=== PATIENT | male | born 1950 | race Caucasian/White ===

== ENCOUNTER → 2016-12-07 | Outpatient (REF) | payer OTHER ==
[2016-12-07 12:02] LABS: INR 3.51
== END ==
LOC: M SFHCCLAY 08:04
PROVIDERS: ATTEND Family Medicine
DX: Z79.01 Long term (current) use of anticoagulants (principal)

== ENCOUNTER → 2016-12-21 | Outpatient (REF) | payer OTHER ==
[2016-12-21 11:59] LABS: INR 3.07
== END ==
LOC: M SFHCCLAY 07:43
PROVIDERS: ATTEND Family Medicine
DX: Z95.2 Presence of prosthetic heart valve (principal)

== ENCOUNTER → 2017-01-04 | Outpatient (REF) | payer OTHER ==
[2017-01-04 13:20] LABS: INR 2.64
== END ==
LOC: M SFHCCLAY 09:28
PROVIDERS: ATTEND Family Medicine
DX: Z79.01 Long term (current) use of anticoagulants (principal); Z51.81 Encounter for therapeutic drug level monitoring

== ENCOUNTER → 2017-01-25 | Outpatient (CLI) | payer MEDICARE, OTHER ==
[~2017-01-25] MED LIST: AMIO200T; AMIO200T PO; ASPI1TAB PO; CITA20TA4; CITA20TA4 PO; DOXA1TAB41; DOXA1TAB71 PO; FAMO1TAB11; METO1TAB32; METO1TAB32 PO; OMEP20CA3 PO; OMEP40CA2; OXYB10TA; OXYB10TA PO; WARF-58 PO; WARF4TAB51 PO
--- NOTE | 2017-01-25 14:07 | REP ---
Chest two views HISTORY: Cough Comparison: None The lungs are clear. A small right pleural effusion is present. The heart is normal in size. The pulmonary vasculature is normal in appearance. The bony structure is intact. There is an old fracture of the left clavicle. IMPRESSION: Small right pleural effusion Signed by Akil Mathias MD 01/25/2017 01:59 P
== END ==
LOC: M RAD 13:19
PROVIDERS: ATTEND Internal Medicine Cardiovascular Disease
DX: R05 Cough (principal)

== ENCOUNTER → 2017-01-26 | Outpatient (REF) | payer OTHER ==
[2017-01-26 11:50] LABS: INR 1.7
== END ==
LOC: M LABDRAWC 11:20
PROVIDERS: ATTEND Internal Medicine Cardiovascular Disease
DX: Z51.81 Encounter for therapeutic drug level monitoring (principal); Z79.01 Long term (current) use of anticoagulants; Z95.2 Presence of prosthetic heart valve

== ENCOUNTER → 2017-02-28 | Outpatient (REF) | payer OTHER ==
[2017-02-28 12:08] LABS: INR 3.5
== END ==
LOC: M LABDRAWC 11:17
PROVIDERS: ATTEND Physician Assistant
DX: Z95.2 Presence of prosthetic heart valve (principal)

== ENCOUNTER → 2017-03-23 | Outpatient (REF) | payer OTHER ==
[2017-03-23 12:33] LABS: INR 2.89
== END ==
LOC: M LAB REF 08:08
PROVIDERS: ATTEND Physician Assistant
DX: Z51.81 Encounter for therapeutic drug level monitoring (principal); Z79.01 Long term (current) use of anticoagulants; Z95.2 Presence of prosthetic heart valve

== ENCOUNTER → 2017-03-31 | Outpatient (CLI) | payer OTHER | LOC: M SMT 14:39 | PROVIDERS: ATTEND Nurse Practitioner Women's Health | DX: N40.0 Benign prostatic hyperplasia without lower urinary tract symptoms (principal); Z12.5 Encounter for screening for malignant neoplasm of prostate | CPT/HCPCS: 36415; 81001; 87086; G0103 ==

== ENCOUNTER → 2017-04-08 | Outpatient (CLI) | payer MEDICARE, OTHER ==
--- NOTE | 2017-04-08 12:54 | REP ---
PA and lateral chest: Comparison is 01/25/2017. There is chronic effacement of the right costophrenic angle, unchanged. Sternotomy wires and cardiac valve prosthesis are again identified, unchanged. Lung oquendo are clear. Cardiac size is normal. The rhiannon, mediastinum, and bony thorax are unremarkable. The cervical spine stabilization plates are again noted. Stabilization plates in the sternum are again noted. Impression: Chronic effacement right costophrenic angle. Lung oquendo otherwise clear. No change from the prior study. Signed by Omar Prince MD 04/08/2017 12:45 P
== END ==
LOC: M RAD 10:56
PROVIDERS: ATTEND Internal Medicine Cardiovascular Disease
DX: R05 Cough (principal)

== ENCOUNTER 2017-04-20 14:36 | Emergency (ER) | payer MEDICARE, OTHER ==
[~2017-04-20] VITALS: Ht 182.9 cm; Wt 87.7 kg
[2017-04-20] MEDS ORDERED: OXYB10TA (15:22)
[2017-04-20] MEDS ORDERED: METO1TAB32 (15:22)
[2017-04-20] MEDS ORDERED: WARF4TAB51 PO (15:22)
[2017-04-20] MEDS ORDERED: FAMO1TAB11 (15:22)
[2017-04-20] MEDS ORDERED: AMIO200T (15:22)
[2017-04-20] MEDS ORDERED: CITA20TA4 (15:22)
[2017-04-20] MEDS ORDERED: WARF-58 PO ×3 (15:22→15:53)
[2017-04-20] MEDS ORDERED: OMEP40CA2 (15:22)
[2017-04-20] MEDS ORDERED: DOXA1TAB41 (15:22)
[2017-04-20] MEDS ORDERED: NS 1,000 ML IV SCH (15:24)
[2017-04-20] MEDS ORDERED: PIPERACILLIN/TAZOBACTAM SOD 3.375 GM in D5W 50 ML IV ONE (15:30)
[2017-04-20] MEDS ORDERED: DOXA1TAB71 PO (15:53)
[2017-04-20] MEDS ORDERED: OMEP20CA3 PO (15:53)
[2017-04-20] MEDS ORDERED: OXYB10TA PO (15:53)
[2017-04-20] MEDS ORDERED: CITA20TA4 PO (15:53)
[2017-04-20] MEDS ORDERED: AMIO200T PO (15:53)
[2017-04-20] MEDS ORDERED: METO1TAB32 PO (15:53)
[2017-04-20] MEDS ORDERED: ASPI1TAB PO (16:03)
[2017-04-20 16:17] LABS: BASO # 0.1 10^3/uL (0.0-0.2); BASO % 0.8 % (0.0-1.0); EOS # 0.2 10^3/uL (0.0-0.50); EOS % 3.1 % (0.0-3.0); IMMATURE GRANULOCYTE % 0.3 % (0-0); LYMPH # 1.2 10^3/uL (1.5-4.5); LYMPH % 17.9 % (24.0-44.0); MEAN CORPUSCULAR HEMOGLOBIN 29.8 pg (27.0-33.0); MEAN CORPUSCULAR HGB CONC 32.8 g/dl (32.0-36.5); MEAN CORPUSCULAR VOLUME 90.7 fl (80.0-96.0); MONO # 0.6 10^3/uL (0.0-0.8); NEUTROPHILS # 4.4 10^3/uL (1.8-7.7); NEUTROPHILS % 68.9 % (36.0-66.0); PLATELET COUNT, AUTOMATED 194 10^3/uL (150-450); RED CELL DISTRIBUTION WIDTH 14.4 % (11.5-14.5); WHITE BLOOD COUNT 6.4 10^3/uL (4.0-10.0)
[2017-04-20 16:22] LABS: ADD MORPHOLOGY? NO
[2017-04-20 16:33] LABS: CHLORIDE LEVEL 106 MEQ/L (98-107); POTASSIUM SERUM 4.2 MEQ/L (3.5-5.1); SODIUM LEVEL 140 MEQ/L (136-145)
[2017-04-20 16:43] LABS: INR 10.36
[2017-04-20] MEDS ORDERED: PHYTONADIONE INJection 5 MG in NS 50 ML IV ONE (16:45)
[2017-04-20 16:49] LABS: ALKALINE PHOSPHATASE 103 U/L (45-117); ALT/SGPT 30 U/L (12-78); AST/SGOT 30 U/L (15-37); BILIRUBIN,DIRECT 0.1 MG/DL (0.0-0.2); BILIRUBIN,TOTAL 0.6 MG/DL (0.2-1.0); BLOOD UREA NITROGEN 10 MG/DL (7-18); CALCIUM LEVEL 8.3 MG/DL (8.8-10.2); GLUCOSE, FASTING 89 MG/DL (80-110); TOTAL PROTEIN 7.2 GM/DL (6.4-8.2)
--- NOTE | 2017-04-20 16:57 | REP ---
CHEST, TWO VIEWS: Two views of the chest are performed and compared to prior study of 04/08/2017. There is no evidence of acute infiltrate. There is again mild elevation of the left hemidiaphragm, unchanged. Heart is not enlarged. Mediastinal silhouette is unchanged. Multiple sternal wires are present. A metallic plate and screws are seen in the lower cervical spine. There are mild degenerative changes of the spine. IMPRESSION: No acute pulmonary disease. Signed by Omar Regan MD 04/21/2017 07:14 P
[2017-04-20 20:36] LABS: ALBUMIN/GLOBULIN RATIO 1.25 (1.00-1.93); ANION GAP 7 MEQ/L (8-16); CARBON DIOXIDE LEVEL 27 MEQ/L (21-32)
--- NOTE | 2017-04-20 22:03 | CR ---
DATE OF CONSULTATION: 04/20/2017 PRIMARY CARE PHYSICIAN: Dr. Rosado GRIEVANCE COORDINATOR: Dr. Tate CHIEF COMPLAINT: Abnormal blood work. HISTORY OF PRESENT ILLNESS: The patient is a 66-year-old man who underwent abdominal aortic aneurysm (AAA) repair and aortic valve replacement with mechanical valve in October. Since then he has been on Coumadin. He was on a dose of 6 mg Tuesday, Tuesday, Tuesday and 3 mg on the other four days of the week. One month ago this was titrated up to 9 mg on Tuesday, Tuesday, Tuesday and 6 mg on every other day of the week. He had an INR check this morning. It was greater than 11, when Dr. Tate' office notified him to present to the emergency room. In the emergency room he did receive vitamin K 5 mg as well as 1 unit of fresh frozen plasma (FFP). He denies any bleeding, bleeding gums. He has reported some mild chest pain, which resolved. Denies fevers, chills, nausea, vomiting, or diarrhea. PAST MEDICAL HISTORY: 1. Mechanical aortic valve. 2. AAA repair. 3. Lumbar stenosis. 4. Cervical degenerative disc disease. 5. Gastroesophageal reflux disease. 6. Depression. 7. Anxiety. 8. Posttraumatic stress disorder (PTSD). 9. Insomnia. 10. Obstructive sleep apnea, not complaint with continuous positive airway pressure (CPAP). 11. Benign prostatic hypertrophy (BPH). ALLERGIES: DARVON, causes tremors. SURGICAL HISTORY: 1. AAA repair. 2. Aortic valve replacement in October 2016. 3. Anterior cervical decompression and fusion (ACDF) 2006. 4. Colonoscopy in 2006. 5. Tonsillectomy. 6. L3-4 laminectomy in 2015. SOCIAL HISTORY: He is former smoker. He denies alcohol or illicit drug use. He lives with his significant other, who is present in the emergency room. FAMILY HISTORY: Noncontributory. REVIEW OF SYSTEMS: Negative other than in history of present illness (HPI). HOME MEDICATIONS: - amiodarone 200 mg daily - aspirin 81 mg daily - citalopram 20 mg at bedtime - metoprolol succinate 25 mg daily - omeprazole 20 mg at bedtime - oxybutynin extended release 10 mg daily - Coumadin as outlined above - doxazosin 2 mg daily OBJECTIVE: VITAL SIGNS: Temperature 97.6, pulse 52, respiratory rate 16, blood pressure (BP) 118/65, oxygen saturation 100% on room air. GENERAL: He is a pleasant, elderly man, lying in a stretcher at a 30-degree angle. He does not appear in any acute distress whatsoever. HEENT: Cranial nerves II-XII are grossly intact. Normocephalic, atraumatic. Moist mucous membranes. No elevation in central venous pressure (CVP). CARDIOVASCULAR: S1, S2. Appears regular. RESPIRATORY: Fairly clear. ABDOMEN: Benign. EXTREMITIES: No clubbing, cyanosis, or edema. LABORATORY STUDIES: WBC 6.4, hemoglobin 15.7, platelet count 194. Chemistry panel: Sodium 140, potassium 4.2, chloride 106, bicarbonate 27, BUN 10, creatinine 1.2. One set of cardiac enzymes is negative. An INR is 10.3. Chest x-ray reveals no acute pulmonary disease. ASSESSMENT AND PLAN: This is a 66-year-old man with elevated INR. 1. Elevated INR> Patient has received 5 mg of vitamin K and is in the process of receiving 1 unit of FFP. He is not actively bleeding. I did discuss the case with Dr. Godinez. Given that there is no evidence of active bleeding, and he has received vitamin K, I suspect that he can be discharged home with an INR check tomorrow and then again the next day, when the results will be sent to Dr. Tate, who has been managing his Coumadin. I suspect he just requires a lower daily dose and has been slowly rising since his medication change [address] Godinez was in agreement with the plan, as was the patient, who is completely asymptomatic at this point. 2. Mild chest discomfort. Does not sound cardiac in etiology; however, given his history, would recommend rechecking another set of cardiac enzymes after completing his 1 unit of FFP, 4 hours apart. If negative, the patient could be discharged home. He does not have any concerning EKG changes. 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 He should hold his aspirin and his Coumadin until notified by Dr. Tate. Plan of care discussed with emergency department (ED) provider, Reji Knox.
[2017-04-20 22:18] VITALS: BP 111/67
--- NOTE | 2017-04-21 07:56 | ECGEPIP ---
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
--- NOTE | 2017-04-22 06:01 | ECGEPIP ---
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
== END 2017-04-20 22:35 | disposition home or self-care (01) ==
LOC: M ED 14:36
DX: R79.1 Abnormal coagulation profile (principal); R10.9 Unspecified abdominal pain; I47.1 Supraventricular tachycardia; G47.33 Obstructive sleep apnea (adult) (pediatric); E78.9 Disorder of lipoprotein metabolism, unspecified; M50.93 Cervical disc disorder, unspecified, cervicothoracic region; M48.00 Spinal stenosis, site unspecified; K21.9 Gastro-esophageal reflux disease without esophagitis; Z79.01 Long term (current) use of anticoagulants; Z79.82 Long term (current) use of aspirin; Z79.899 Other long term (current) drug therapy; Z95.2 Presence of prosthetic heart valve; Z87.891 Personal history of nicotine dependence
CPT/HCPCS: 71020; 80053; 82550; 82553; 84443; 84484; 85025; 85027; 85610; 85730; 86850; 86900; 86901; 86927; 93005; 93041; 94760; 96374; 99285; J3430; P9017

== ENCOUNTER → 2017-04-20 | Outpatient (REF) | payer MEDICARE, OTHER ==
[2017-04-20 11:50] LABS: BASO # 0.1 10^3/uL (0.0-0.2); BASO % 1.2 % (0.0-1.0); EOS # 0.2 10^3/uL (0.0-0.50); EOS % 3.2 % (0.0-3.0); IMMATURE GRANULOCYTE % 0.2 % (0-0); LYMPH # 1.3 10^3/uL (1.5-4.5); LYMPH % 19.6 % (24.0-44.0); MEAN CORPUSCULAR HEMOGLOBIN 29.6 pg (27.0-33.0); MEAN CORPUSCULAR HGB CONC 32.3 g/dl (32.0-36.5); MEAN CORPUSCULAR VOLUME 91.6 fl (80.0-96.0); MONO # 0.7 10^3/uL (0.0-0.8); MONO % 10.9 % (0.0-5.0); NEUTROPHILS # 4.2 10^3/uL (1.8-7.7); NEUTROPHILS % 64.9 % (36.0-66.0); RED CELL DISTRIBUTION WIDTH 14.3 % (11.5-14.5); WHITE BLOOD COUNT 6.5 10^3/uL (4.0-10.0)
[2017-04-20 12:27] LABS: ALBUMIN 3.8 GM/DL (3.2-5.2); ALBUMIN/GLOBULIN RATIO 1.23 (1.00-1.93); ALKALINE PHOSPHATASE 94 U/L (45-117); ALT/SGPT 29 U/L (12-78); ANION GAP 7 MEQ/L (8-16); AST/SGOT 26 U/L (15-37); BILIRUBIN,TOTAL 0.5 MG/DL (0.2-1.0); BLOOD UREA NITROGEN 9 MG/DL (7-18); CALCIUM LEVEL 8.7 MG/DL (8.8-10.2); CARBON DIOXIDE LEVEL 27 MEQ/L (21-32); CHLORIDE LEVEL 105 MEQ/L (98-107); CREATININE FOR GFR 1.15 MG/DL (0.70-1.30); GLOMERULAR FILTRATION RATE > 60.0 (>49); GLUCOSE, FASTING 80 MG/DL (80-110); POTASSIUM SERUM 4.3 MEQ/L (3.5-5.1); SODIUM LEVEL 139 MEQ/L (136-145); TOTAL PROTEIN 6.9 GM/DL (6.4-8.2)
[2017-04-20 12:47] LABS: INR 11.99
== END ==
LOC: M LAB REF 11:31
PROVIDERS: ATTEND Internal Medicine Cardiovascular Disease
DX: I47.1 Supraventricular tachycardia (principal)

== ENCOUNTER → 2017-04-21 | Outpatient (REF) | payer MEDICARE, OTHER ==
[2017-04-21 13:33] LABS: INR 1.43
== END ==
LOC: M LAB REF 12:00
PROVIDERS: ATTEND Internal Medicine
DX: Z79.01 Long term (current) use of anticoagulants (principal)

== ENCOUNTER → 2017-04-22 | Outpatient (REF) | payer MEDICARE, OTHER ==
[2017-04-22 13:32] LABS: INR 1.28
== END ==
LOC: M LAB REF 11:55
PROVIDERS: ATTEND Internal Medicine
DX: Z79.01 Long term (current) use of anticoagulants (principal)

== ENCOUNTER → 2017-04-26 | Outpatient (REF) | payer MEDICARE, OTHER ==
[2017-04-26 12:05] LABS: INR 3.42
== END ==
LOC: M LABDRAWC 11:31
PROVIDERS: ATTEND Internal Medicine Cardiovascular Disease
DX: Z51.81 Encounter for therapeutic drug level monitoring (principal); Z79.01 Long term (current) use of anticoagulants; Z95.2 Presence of prosthetic heart valve

== ENCOUNTER → 2017-05-11 | Outpatient (CLI) | payer MEDICARE, OTHER ==
[2017-05-11 16:38] LABS: INR 2.25
== END ==
LOC: M LAB 15:50
PROVIDERS: ATTEND Internal Medicine Cardiovascular Disease
DX: Z51.81 Encounter for therapeutic drug level monitoring (principal); Z79.01 Long term (current) use of anticoagulants; Z95.2 Presence of prosthetic heart valve

== ENCOUNTER → 2017-10-17 | Outpatient (CLI) | payer MEDICARE, OTHER | LOC: M RAD 12:12 | DX: I47.1 Supraventricular tachycardia (principal) | CPT/HCPCS: 71046 ==

== ENCOUNTER 2018-09-07 10:24 | Day surgery (SDC) | payer OTHER ==
[~2018-09-07] VITALS: Ht 182.9 cm; Wt 94.3 kg
[~2018-09-07 10:24] MED LIST changes: -DOXA1TAB71 PO; +DOXA2TAB3 PO; +MEMA1TAB2 PO; +NS 1,000 ML IV ONE
[2018-09-07 11:14] LABS: INR 1.62; PROTHROMBIN TIME 19.5 SECONDS (12.1-14.4)
[2018-09-07] MEDS ORDERED: PROPOFOL 200 MG/20 ML VIAL As Ordered ONE ×2 (11:58→12:55)
[2018-09-07] MEDS ORDERED: LIDOCAINE 2% INJ 100 MG/5 ML SDV (FOR ANES.) As Ordered ONE (11:58)
--- NOTE | 2018-09-07 12:55 | ROOR ---
Patient Name: Kt Martinez Procedure Date: 09/07/2018 12:43 PM Date of : 1950 Age: 68 Room: [facility] Gender: Male Note Status: Finalized Procedure: Upper GI endoscopy Indications: Heartburn Providers: Gary DE LA GARZA MD Referring MD: CATIA MONSIVAIS DO Requesting Provider: Medicines: Monitored Anesthesia Care Complications: No immediate complications. Procedure: Pre-Anesthesia Assessment: - The heart rate, respiratory rate, oxygen saturations, blood pressure, adequacy of pulmonary ventilation, and response to care were monitored throughout the procedure. The Endoscope was introduced through the mouth, and advanced to the second part of duodenum. The upper GI endoscopy was accomplished without difficulty. The patient tolerated the procedure well. Findings: The esophagus was normal. The stomach was normal. The examined duodenum was normal. Impression: - Normal esophagus. - Normal stomach. - Normal examined duodenum. - No specimens collected. Recommendation: - Continue present medications. - Observe patient's clinical course. - Follow an antireflux regimen. Gary De La Garza MD Gary DE LA GARZA MD 09/07/2018 12:54:45 PM This report has been signed electronically. Number of Addenda: 0 Note Initiated On: 09/07/2018 12:43 PM Estimated Blood Loss: Estimated blood loss: none.
--- NOTE | 2018-09-07 13:14 | ROOR ---
Patient Name: Kt Martinez Procedure Date: 09/07/2018 12:44 PM Date of : 1950 Age: 68 Room: [facility] Gender: Male Note Status: Finalized Procedure: Colonoscopy Indications: Screening for colorectal malignant neoplasm Providers: Gary DE LA GARZA MD Referring MD: CATIA MONSIVAIS DO Requesting Provider: Medicines: Monitored Anesthesia Care Complications: No immediate complications. Procedure: Pre-Anesthesia Assessment: - The heart rate, respiratory rate, oxygen saturations, blood pressure, adequacy of pulmonary ventilation, and response to care were monitored throughout the procedure. The Colonoscope was introduced through the anus and advanced to the cecum, identified by appendiceal orifice and ileocecal valve. The colonoscopy was performed without difficulty. The patient tolerated the procedure well. The quality of the bowel preparation was good. Findings: The perianal and digital rectal examinations were normal. A 10 mm polyp was found in the distal sigmoid colon. The polyp was pedunculated. The polyp was removed with a cold snare. Resection and retrieval were complete. To prevent bleeding after the polypectomy, three hemostatic clips were successfully placed (MR conditional). There was no bleeding at the end of the procedure. Internal hemorrhoids were found during retroflexion. The hemorrhoids were medium-sized. The exam was otherwise without abnormality on direct and retroflexion views. Impression: - One 10 mm polyp in the distal sigmoid colon, removed with a cold snare. Resected and retrieved. Clips (MR conditional) were placed. - Internal hemorrhoids. - The colon examination was otherwise normal on direct and retroflexion views. Recommendation: - Resume Coumadin (warfarin) at prior dose today. - Await pathology results. - Repeat colonoscopy in 5 years for surveillance. - Telephone endoscopist for pathology results in 2 weeks. Gary De La Garza MD Gary DE LA GARZA MD 09/07/2018 1:14:07 PM This report has been signed electronically. Number of Addenda: 0 Note Initiated On: 09/07/2018 12:44 PM Estimated Blood Loss: Estimated blood loss: none.
[2018-09-07 13:40] VITALS: BP 116/71
== END 2018-09-07 13:40 | disposition home or self-care (01) ==
LOC: M OPP 10:24
PROVIDERS: ATTEND Internal Medicine Gastroenterology
DX: D12.5 Benign neoplasm of sigmoid colon (principal); K64.8 Other hemorrhoids; R12 Heartburn; Z12.11 Encounter for screening for malignant neoplasm of colon

== ENCOUNTER → 2019-09-25 | Outpatient (REF) | payer OTHER ==
[~2019-09-25] MED LIST changes: -ASPI1TAB PO; +ASPI81TA26 PO; -CITA20TA4; -CITA20TA4 PO; +CITA20TA6; +CITA20TA6 PO; +MEMA10TA19 PO; -MEMA1TAB2 PO; -NS 1,000 ML IV ONE; +OMEP1CAP73 PO; -OMEP20CA3 PO; -OMEP40CA2; +OMEP40CA97; -OXYB10TA; -OXYB10TA PO; +OXYB10TA23; +OXYB10TA23 PO
[2019-09-25 12:26] LABS: ALBUMIN 3.8 GM/DL (3.2-5.2); BILIRUBIN,TOTAL 0.5 MG/DL (0.2-1.0); CALCIUM LEVEL 8.9 MG/DL (8.8-10.2); CHOLESTEROL RISK RATIO 3.311 (<5); CREATININE FOR GFR 1.34 MG/DL (0.70-1.30); GLOMERULAR FILTRATION RATE 55.9 (>42); POTASSIUM SERUM 4.7 MEQ/L (3.5-5.1); TOTAL PROTEIN 7.1 GM/DL (6.4-8.2)
== END ==
LOC: M SFHCCLAY 07:41
PROVIDERS: ATTEND Family Medicine
DX: E78.2 Mixed hyperlipidemia (principal)

== ENCOUNTER → 2020-09-16 | Outpatient (REF) | payer OTHER ==
[~2020-09-16] MED LIST changes: -AMIO200T; -AMIO200T PO; +AMIO200T3; +AMIO200T3 PO
[2020-09-16 12:07] LABS: BASO # 0.1 10^3/uL (0.0-0.2); BASO % 1.1 % (0.0-1.0); EOS # 0.2 10^3/uL (0.0-0.5); EOS % 3.6 % (0.0-3.0); HEMOGLOBIN 14.9 g/dl (13.5-17.5); LYMPH # 1.4 10^3/uL (1.5-5.0); LYMPH % 21.9 % (24.0-44.0); MEAN CORPUSCULAR HGB CONC 30.4 g/dl (32.0-36.5); MEAN CORPUSCULAR VOLUME 98.6 fl (80.0-96.0); MONO # 0.7 10^3/uL (0.0-0.8); NEUTROPHILS # 4.1 10^3/uL (1.5-8.5); NEUTROPHILS % 63.2 % (36.0-66.0); PLATELET COUNT, AUTOMATED 219 10^3/uL (150-450); RED BLOOD COUNT 4.97 10^6/uL (4.30-6.10); WHITE BLOOD COUNT 6.5 10^3/uL (4.0-10.0)
[2020-09-16 12:42] LABS: ALBUMIN 3.8 GM/DL (3.2-5.2); BILIRUBIN,TOTAL 0.5 MG/DL (0.2-1.0); CALCIUM LEVEL 8.8 MG/DL (8.8-10.2); CHOLESTEROL RISK RATIO 3.5 (<5); CREATININE FOR GFR 1.36 MG/DL (0.70-1.30); GLOMERULAR FILTRATION RATE 54.8 (>42); POTASSIUM SERUM 4.3 MEQ/L (3.5-5.1); TOTAL PROTEIN 6.8 GM/DL (6.4-8.2)
== END ==
LOC: M SFHCCLAY 08:23
PROVIDERS: ATTEND Family Medicine
DX: E78.2 Mixed hyperlipidemia (principal); R03.0 Elevated blood-pressure reading, without diagnosis of hypertension

== ENCOUNTER → 2021-09-17 | Outpatient (REF) | payer OTHER ==
[~2021-09-17] MED LIST changes: -AMIO200T3; -AMIO200T3 PO; +AMIO200T49; +AMIO200T49 PO; +OMEP40CA4; -OMEP40CA97
[2021-09-17 11:37] LABS: BASO # 0.1 10^3/uL (0.0-0.2); EOS # 0.2 10^3/uL (0.0-0.5); EOS % 3.3 % (0.0-3.0); HEMATOCRIT 47.6 % (42.0-52.0); HEMOGLOBIN 14.9 g/dl (13.5-17.5); LYMPH # 1.3 10^3/uL (1.5-5.0); LYMPH % 21.6 % (24.0-44.0); MEAN CORPUSCULAR HEMOGLOBIN 30.3 pg (27.0-33.0); MEAN CORPUSCULAR HGB CONC 31.3 g/dl (32.0-36.5); MEAN CORPUSCULAR VOLUME 96.7 fl (80.0-96.0); MONO # 0.6 10^3/uL (0.0-0.8); MONO % 9.5 % (2.0-8.0); NEUTROPHILS # 3.7 10^3/uL (1.5-8.5); NEUTROPHILS % 64.4 % (36.0-66.0); PLATELET COUNT, AUTOMATED 213 10^3/uL (150-450); RED BLOOD COUNT 4.92 10^6/uL (4.30-6.10); WHITE BLOOD COUNT 5.8 10^3/uL (4.0-10.0)
[2021-09-17 12:31] LABS: ALBUMIN 3.7 GM/DL (3.2-5.2); ALT/SGPT 32 U/L (12-78); BILIRUBIN,TOTAL 0.4 MG/DL (0.2-1.0); BLOOD UREA NITROGEN 8 MG/DL (7-18); CARBON DIOXIDE LEVEL 29 MEQ/L (21-32); CHLORIDE LEVEL 108 MEQ/L (98-107); CHOLESTEROL LEVEL 200 MG/DL (<200); CHOLESTEROL RISK RATIO 4.444 (<5); CREATININE FOR GFR 1.21 MG/DL (0.70-1.30); GLOMERULAR FILTRATION RATE > 60.0 (>42); GLUCOSE, FASTING 124 MG/DL (70-100); HDL CHOLESTEROL 45 MG/DL (>40); LDL CHOLESTEROL 124 MG/DL (<100); MAGNESIUM LEVEL 2.7 MG/DL (1.8-2.4); NON-HDL-C 155 MG/DL; POTASSIUM SERUM 4.3 MEQ/L (3.5-5.1); SODIUM LEVEL 141 MEQ/L (136-145); TOTAL PROTEIN 7.2 GM/DL (6.4-8.2); TRIGLYCERIDES LEVEL 153 MG/DL (<150)
== END ==
LOC: M SFHCCLAY 08:54
PROVIDERS: ATTEND Family Medicine
DX: E78.2 Mixed hyperlipidemia (principal); Z13.0 Encounter for screening for diseases of the blood and blood-forming organs and certain disorders involving the immune mechanism; K21.9 Gastro-esophageal reflux disease without esophagitis
CPT/HCPCS: 80053; 80061; 83735; 85025; G0463

== ENCOUNTER → 2022-03-26 | Outpatient (CLI) | payer OTHER | LOC: M CLY 08:16 | PROVIDERS: ATTEND Family Medicine | DX: M25.561 Pain in right knee (principal) ==

== ENCOUNTER → 2022-05-31 | Outpatient (CLI) | payer OTHER | LOC: M LABSMTC 11:46 | PROVIDERS: ATTEND Anesthesiology | DX: Z01.812 Encounter for preprocedural laboratory examination (principal); Z11.52 Encounter for screening for COVID-19 ==

== ENCOUNTER → 2022-06-17 | Outpatient (CLI) | payer OTHER | LOC: M LABSMTC 10:46 | PROVIDERS: ATTEND Internal Medicine Gastroenterology | DX: Z20.828 Contact with and (suspected) exposure to other viral communicable diseases (principal); Z11.59 Encounter for screening for other viral diseases ==

== ENCOUNTER 2022-06-22 07:27 | Day surgery (SDC) | payer OTHER ==
[~2022-06-22] VITALS: Ht 180.3 cm; Wt 87.5 kg
[~2022-06-22 07:27] MED LIST changes: +NS 1,000 ML IV ONE
[2022-06-22] MEDS ORDERED: propofoL 200 MG/20 ML VIAL As Ordered ONE (08:46)
[2022-06-22] MEDS ORDERED: LIDOCAINE 2% 100MG/5ML SDV (FOR ANES.) As Ordered ONE (08:46)
[2022-06-22 09:20] VITALS: BP 109/75
== END 2022-06-22 09:35 | disposition home or self-care (01) ==
LOC: M OPP 07:27
PROVIDERS: ATTEND Internal Medicine Gastroenterology
DX: Z12.11 Encounter for screening for malignant neoplasm of colon (principal); Z86.010 Personal history of colon polyps; D12.2 Benign neoplasm of ascending colon; K63.5 Polyp of colon; K64.8 Other hemorrhoids; Z87.891 Personal history of nicotine dependence; I10 Essential (primary) hypertension; F41.9 Anxiety disorder, unspecified; F32.9 Major depressive disorder, single episode, unspecified; Z79.01 Long term (current) use of anticoagulants; Z79.02 Long term (current) use of antithrombotics/antiplatelets; Z79.899 Other long term (current) drug therapy; Z88.5 Allergy status to narcotic agent

== ENCOUNTER → 2022-10-15 | Outpatient (REF) | payer OTHER ==
[~2022-10-15] MED LIST changes: -NS 1,000 ML IV ONE
[2022-10-15 17:56] LABS: BASO # 0.1 10^3/uL (0.0-0.2); BASO % 0.8 % (0.0-1.0); EOS # 0.2 10^3/uL (0.0-0.5); EOS % 2.5 % (0.0-3.0); HEMATOCRIT 48.3 % (42.0-52.0); HEMOGLOBIN 15.5 g/dl (13.5-17.5); LYMPH # 1.1 10^3/uL (1.5-5.0); LYMPH % 14.2 % (24.0-44.0); MEAN CORPUSCULAR HEMOGLOBIN 31.3 pg (27.0-33.0); MEAN CORPUSCULAR HGB CONC 32.1 g/dl (32.0-36.5); MEAN CORPUSCULAR VOLUME 97.6 fl (80.0-96.0); MONO # 0.7 10^3/uL (0.0-0.8); MONO % 8.4 % (2.0-8.0); NEUTROPHILS # 5.7 10^3/uL (1.5-8.5); NEUTROPHILS % 73.8 % (36.0-66.0); PLATELET COUNT, AUTOMATED 186 10^3/uL (150-450); RED BLOOD COUNT 4.95 10^6/uL (4.30-6.10); WHITE BLOOD COUNT 7.8 10^3/uL (4.0-10.0)
[2022-10-15 18:12] LABS: HEMOGLOBIN A1c 5.6 % (4.0-6.0)
[2022-10-15 18:29] LABS: ALBUMIN 3.7 G/DL (3.2-5.2); ALKALINE PHOSPHATASE 104 U/L (46-116); ALT/SGPT 28 U/L (7.0-40); AST/SGOT 28 U/L (<34); BILIRUBIN,TOTAL 0.9 MG/DL (0.3-1.2); BLOOD UREA NITROGEN 10 MG/DL (9-23); CALCIUM LEVEL 8.6 MG/DL (8.3-10.6); CARBON DIOXIDE LEVEL 29 MMOL/L (20-31); CHLORIDE LEVEL 106 MMOL/L (98-107); CHOLESTEROL LEVEL 159 MG/DL (<200); CHOLESTEROL RISK RATIO 2.65 (<5); CREATININE FOR GFR 1.12 MG/DL (0.70-1.30); GLOMERULAR FILTRATION RATE > 60.0 (>42); GLUCOSE, FASTING 101 MG/DL (74-106); LDL CHOLESTEROL 73.2 MG/DL (<100); MAGNESIUM LEVEL 2.3 MG/DL (1.8-2.4); POTASSIUM SERUM 4.7 MMOL/L (3.5-5.1); SODIUM LEVEL 139 MMOL/L (136-145); THYROID STIMULATING HORMONE 1.904 uIU/ML (0.55-4.78); TOTAL PROTEIN 6.6 G/DL (5.7-8.2); TRIGLYCERIDES LEVEL 129 MG/DL (<150)
== END ==
LOC: M SFHCCLAY 09:19
PROVIDERS: ATTEND Family Medicine
DX: E78.2 Mixed hyperlipidemia (principal); R03.0 Elevated blood-pressure reading, without diagnosis of hypertension; R73.01 Impaired fasting glucose; K21.9 Gastro-esophageal reflux disease without esophagitis; F32.9 Major depressive disorder, single episode, unspecified; G47.00 Insomnia, unspecified
CPT/HCPCS: 80053; 80061; 83036; 83735; 84443; 85025; G0463

== ENCOUNTER 2023-02-09 11:41 | Day surgery (SDC) | payer OTHER, MEDICARE ==
[~2023-02-09] VITALS: Ht 177.8 cm; Wt 85.8 kg
[~2023-02-09 11:41] MED LIST changes: +B-122500 PO; +BSS IRRIG/VANCO(10MG)/TOBRA(5MG)/EPINEPH(1:1000-0.5CC)500ML BAG-ORONLY IR ONE; +BUPR150T12 PO; +CEFUROXIME 1MG/0.1ML INTRACAMERAL INJ As Ordered ONE; +CYCLOPENTOLATE 1% OPHTH SOLN 2ML BTL OS SCH; +DONE10TA90 PO; -DOXA2TAB3 PO; +DOXA2TAB61 PO; +LIDOCAINE 1% SDV 5ML VIAL As Ordered ONE; +LIDOCAINE 3.5 % 1ML OPHTH TOPICAL GEL OU ONE; +OFLOXACIN 0.3 % (OCUFLOX) OPTH SOL 5ML OS ONE; +PANT40TA29 PO; +PHENYLEPHRINE 10% OPHTH SOL 5ML OS PRN; +PHENYLEPHRINE 2.5% OPHTH SOL 2ML OS SCH; +TROPICAMIDE 1% OPHTH SOLN 15ML OS SCH
[2023-02-09] MEDS ORDERED: MIDAZOLAM INJ 2MG/2ML VIAL As Ordered ONE (13:19)
[2023-02-09] MEDS ORDERED: fentaNYL 100 MCG/2 ML INJECTION As Ordered ONE (13:19)
[2023-02-09 14:38] VITALS: BP 123/80; TEMP 97.2; O2SAT 99
== END 2023-02-09 14:52 | disposition home or self-care (01) ==
LOC: M SDC 11:41
PROVIDERS: ATTEND Ophthalmology
DX: H25.12 Age-related nuclear cataract, left eye (principal); I10 Essential (primary) hypertension; K21.9 Gastro-esophageal reflux disease without esophagitis; F03.90 Unspecified dementia, unspecified severity, without behavioral disturbance, psychotic disturbance, mood disturbance, and anxiety; F41.9 Anxiety disorder, unspecified; F32.A Depression, unspecified; F43.10 Post-traumatic stress disorder, unspecified; Z79.82 Long term (current) use of aspirin; Z79.01 Long term (current) use of anticoagulants; Z79.899 Other long term (current) drug therapy; N40.0 Benign prostatic hyperplasia without lower urinary tract symptoms; G47.33 Obstructive sleep apnea (adult) (pediatric)
CPT/HCPCS: 66984; J0697; J2250; J3010; V2632

== ENCOUNTER 2023-05-04 06:20 | Day surgery (SDC) | payer OTHER, MEDICARE ==
[~2023-05-04] VITALS: Ht 180.3 cm; Wt 87.2 kg
[~2023-05-04 06:20] MED LIST changes: -CEFUROXIME 1MG/0.1ML INTRACAMERAL INJ As Ordered ONE; +CYCLOPENTOLATE 1% OPHTH SOLN 2ML BTL OD SCH; -CYCLOPENTOLATE 1% OPHTH SOLN 2ML BTL OS SCH; +OFLOXACIN 0.3 % (OCUFLOX) OPTH SOL 5ML OD ONE; -OFLOXACIN 0.3 % (OCUFLOX) OPTH SOL 5ML OS ONE; +PHENYLEPHRINE 10% OPHTH SOL 5ML OD PRN; -PHENYLEPHRINE 10% OPHTH SOL 5ML OS PRN; +PHENYLEPHRINE 2.5% OPHTH SOL 2ML OD SCH; -PHENYLEPHRINE 2.5% OPHTH SOL 2ML OS SCH; +TROPICAMIDE 1% OPHTH SOLN 15ML OD SCH; -TROPICAMIDE 1% OPHTH SOLN 15ML OS SCH
[2023-05-04] MEDS ORDERED: CEFUROXIME 1MG/0.1ML INTRACAMERAL INJ As Ordered ONE (06:21)
[2023-05-04] MEDS ORDERED: SIMV20TA22 PO (07:02)
[2023-05-04] MEDS ORDERED: SILD100T PO (07:02)
[2023-05-04] MEDS ORDERED: CITA20TA6 PO (07:02)
[2023-05-04] MEDS ORDERED: fentaNYL 100 MCG/2 ML INJECTION As Ordered ONE (07:09)
[2023-05-04] MEDS ORDERED: MIDAZOLAM INJ 2MG/2ML VIAL As Ordered ONE (07:10)
[2023-05-04 08:00] VITALS: BP 130/75; TEMP 97.7; O2SAT 94
== END 2023-05-04 08:19 | disposition home or self-care (01) ==
LOC: M SDC 06:20
PROVIDERS: ATTEND Ophthalmology
DX: H26.9 Unspecified cataract (principal); I10 Essential (primary) hypertension; E78.5 Hyperlipidemia, unspecified; G47.33 Obstructive sleep apnea (adult) (pediatric); Z79.82 Long term (current) use of aspirin; Z79.899 Other long term (current) drug therapy; Z79.01 Long term (current) use of anticoagulants; Z95.2 Presence of prosthetic heart valve; Z87.891 Personal history of nicotine dependence
CPT/HCPCS: 66984; J0697; J2250; J3010; V2632

== ENCOUNTER → 2024-06-22 | Outpatient (CLI) | payer OTHER, MEDICARE ==
[~2024-06-22] MED LIST changes: -BSS IRRIG/VANCO(10MG)/TOBRA(5MG)/EPINEPH(1:1000-0.5CC)500ML BAG-ORONLY IR ONE; -CYCLOPENTOLATE 1% OPHTH SOLN 2ML BTL OD SCH; -LIDOCAINE 1% SDV 5ML VIAL As Ordered ONE; -LIDOCAINE 3.5 % 1ML OPHTH TOPICAL GEL OU ONE; +MEMA10TA PO; -MEMA10TA19 PO; -OFLOXACIN 0.3 % (OCUFLOX) OPTH SOL 5ML OD ONE; -PHENYLEPHRINE 10% OPHTH SOL 5ML OD PRN; -PHENYLEPHRINE 2.5% OPHTH SOL 2ML OD SCH; +SILD100T PO; +SIMV20TA22 PO; -TROPICAMIDE 1% OPHTH SOLN 15ML OD SCH
== END ==
LOC: M EKG 15:18
PROVIDERS: ATTEND Registered Nurse
DX: I47.10 Supraventricular tachycardia, unspecified (principal)

== ENCOUNTER → 2025-02-12 | Outpatient (CLI) | payer OTHER, MEDICARE ==
[~2025-02-12] MED LIST changes: -AMIO200T49; -AMIO200T49 PO; +AMIO200T54; +AMIO200T54 PO
== END ==
LOC: M PLAIMG 08:42
PROVIDERS: ATTEND Registered Nurse
DX: I35.8 Other nonrheumatic aortic valve disorders (principal); I71.20 Thoracic aortic aneurysm, without rupture, unspecified